=== PATIENT | female | born 1970 | race Caucasian/White ===

== ENCOUNTER 2016-10-14 15:00 | Emergency (ER) | payer BC ==
[2016-10-14] MEDS ORDERED: LIDOCAINE/EPI 1% MDV 20 ML ONE (16:50)
[2016-10-14] MEDS ORDERED: KETOROLAC 30 MG/ML VIAL ONE (16:52)
[2016-10-14] MEDS ORDERED: CEFTRIAXONE 1 GM VIAL ONE (17:29)
== END 2016-10-14 18:03 | disposition home or self-care (01) ==
LOC: FASTR 15:00
DX: L03.116 Cellulitis of left lower limb (principal); L02.416 Cutaneous abscess of left lower limb; Z79.899 Other long term (current) drug therapy
CPT/HCPCS: 36415; 80053; 85025; 85652; 87071; 87077; 87186; 96365; 96375